=== PATIENT | female | born 1955 | race Caucasian/White ===

== ENCOUNTER 2017-07-21 10:52 | Emergency (ER) | payer MEDICARE, MEDICAID ==
[~2017-07-21] VITALS: Ht 170.2 cm; Wt 204.6 kg
[~2017-07-21 10:52] MED LIST: ALPR-624 PO; BECL7.3A INH; CARI350T PO; CITA20TA11 PO; CYAN-19 PO; DIT5T PO; DULO-31 PO; GABA600T PO; METH-603 PO; MIRT30TA8 PO; MONT10TA24 PO; OMEP20TA5 PO; OXYC-658 PO; PRAM0.253 PO; PYRI25TA3 PO; SUMA50TA PO; TIOT18CA7 IH; [UNRECOGNIZED DRUG - CODE] PO
[2017-07-21] MEDS ORDERED: normal saline 1000ML IV soln IVB ONE (11:35)
[2017-07-21] MEDS ORDERED: oxyCODONE/APAP 5-325mg tablet PO ONE (11:55)
[2017-07-21 11:57] LABS: BASOPHILS % (AUTO) 0.6 % (0-1); EOSINOPHILS # (AUTO) 0.1 X10'3 (0-0.9); EOSINOPHILS % (AUTO) 2.1 % (0-6); HEMATOCRIT 32.1 % (35.0-45.0); HEMOGLOBIN 10.8 g/dl (12.0-16.0); LYMPHOCYTES # (AUTO) 1.1 X10'3 (1.1-4.8); MEAN CORPUSCULAR HEMOGLOBIN 31.9 PG (27.0-31.0); MEAN CORPUSCULAR HGB CONC 33.7 % (33.0-36.5); MEAN CORPUSCULAR VOLUME 94.5 FL (78-98); MONOCYTES # (AUTO) 0.4 X10'3 (0-0.9); NEUTROPHILS # (AUTO) 3.1 X10'3 (1.8-7.7); NEUTROPHILS % (AUTO) 65.3 % (42-75); PLATELET COUNT 206 X10'3 (140-440); RED CELL DISTRIBUTION WIDTH 15.8 % (11.5-14.5); WHITE BLOOD COUNT 4.8 X10'3 (4.5-11.0)
[2017-07-21 12:12] LABS: ALANINE AMINOTRANSFERASE 15 U/L (12-78); ALBUMIN 3.2 G/DL (3.4-5.0); ALKALINE PHOSPHATASE 78 IU/L (46-116); ANION GAP 6 (8-16); ASPARTATE AMINO TRANSFERASE 12 U/L (10-37); BILIRUBIN,TOTAL 0.7 MG/DL (0.1-1.0); BLOOD UREA NITROGEN 30 MG/DL (7-18); CALCIUM 9.4 MG/DL (8.5-10.1); CHLORIDE 101 MMOL/L (99-107); CREATININE 1.11 MG/DL (0.40-0.90); GLUCOSE 108 MG/DL (70-104); POTASSIUM 4.3 MMOL/L (3.5-5.1); SODIUM 137 MMOL/L (135-145); TOTAL CARBON DIOXIDE 30.4 MMOL/L (24-32); TOTAL PROTEIN 6.4 G/DL (6.4-8.2); eGFR 50 ML/MIN
[2017-07-21 13:08] LABS: CLARITY,URINE CLEAR (Clear); COLOR,URINE YELLOW (Yellow); GLUCOSE, URINE NEGATIVE (Neg); KETONES,URINE NEGATIVE (Neg); LEUKOCYTE ESTERASE ,URINE NEGATIVE (Neg); NITRITES, URINE NEGATIVE (Neg); OCCULT BLOOD,URINE TRACE-INTACT (Neg); PROTEIN,URINE 100 mg/dl (Neg); UROBILINOGEN,URINE 0.2 E.U/dL (0.2-1.0)
[2017-07-21 13:10] LABS: UA COLLECTION TYPE STRAIGHT CATH
[2017-07-21 13:13] LABS: BACTERIA,URINE FEW /HPF (Neg); SQUAMOUS EPITHELIAL CELL,UR FEW /LPF (FEW); WBC,URINE 0-4 /HPF (0-4)
[2017-07-21] MEDS ORDERED: ACYC-202 PO (14:02)
[2017-07-21 18:36] VITALS: BP 148/88
== END 2017-07-21 18:39 | disposition home or self-care (01) ==
LOC: ER 10:53
DX: G62.9 Polyneuropathy, unspecified (principal); B02.9 Zoster without complications; J44.9 Chronic obstructive pulmonary disease, unspecified; I12.9 Hypertensive chronic kidney disease with stage 1 through stage 4 chronic kidney disease, or unspecified chronic kidney disease; N18.9 Chronic kidney disease, unspecified; G89.29 Other chronic pain; Z98.890 Other specified postprocedural states; Z79.899 Other long term (current) drug therapy; Z88.0 Allergy status to penicillin; Z88.8 Allergy status to other drugs, medicaments and biological substances
CPT/HCPCS: 36415; 71045; 80053; 81001; 83880; 84145; 84484; 85025; 99285

== ENCOUNTER 2017-07-31 23:16 | Observation (INO) | payer MEDICARE, MEDICAID ==
[~2017-07-31] VITALS: Ht 170.2 cm; Wt 204.6 kg
[~2017-07-31 23:16] MED LIST changes: +ACYC-202 PO; +CITA-278 PO; -CITA20TA11 PO
[2017-07-31] MEDS ORDERED: normal saline 1000ML IV soln IVB ONE (23:35)
[2017-07-31 23:58] LABS: BASOPHILS % (AUTO) 0.3 % (0-1); EOSINOPHILS # (AUTO) 0.2 X10'3 (0-0.9); EOSINOPHILS % (AUTO) 2.7 % (0-6); HEMATOCRIT 33.5 % (35.0-45.0); HEMOGLOBIN 11.4 g/dl (12.0-16.0); LYMPHOCYTES % (AUTO) 15.6 % (21-51); MEAN CORPUSCULAR HEMOGLOBIN 32.5 PG (27.0-31.0); MEAN CORPUSCULAR HGB CONC 33.9 % (33.0-36.5); MEAN CORPUSCULAR VOLUME 95.8 FL (78-98); MEAN PLATELET VOLUME 8.5 FL (7.4-10.4); MONOCYTES # (AUTO) 0.3 X10'3 (0-0.9); MONOCYTES % (AUTO) 5.5 % (2-12); NEUTROPHILS # (AUTO) 4.6 X10'3 (1.8-7.7); NEUTROPHILS % (AUTO) 75.9 % (42-75); PLATELET COUNT 203 X10'3 (140-440); RED CELL DISTRIBUTION WIDTH 14.5 % (11.5-14.5); WHITE BLOOD COUNT 6.1 X10'3 (4.5-11.0)
[2017-08-01 00:15] LABS: ALANINE AMINOTRANSFERASE 20 U/L (12-78); ALBUMIN 3.5 G/DL (3.4-5.0); ALKALINE PHOSPHATASE 72 IU/L (46-116); ANION GAP 8 (8-16); ASPARTATE AMINO TRANSFERASE 27 U/L (10-37); BILIRUBIN,TOTAL 0.6 MG/DL (0.1-1.0); BLOOD UREA NITROGEN 54 MG/DL (7-18); BUN/CREATININE RATIO 29.5 (6.6-38.0); CALCIUM 9.8 MG/DL (8.5-10.1); CHLORIDE 99 MMOL/L (99-107); CREATININE 1.83 MG/DL (0.40-0.90); GLUCOSE 107 MG/DL (70-104); POTASSIUM 4.3 MMOL/L (3.5-5.1); SODIUM 135 MMOL/L (135-145); TOTAL PROTEIN 7.1 G/DL (6.4-8.2); eGFR 28 ML/MIN
[2017-08-01 00:30] LABS: CKMB RELATIVE INDEX 1.2 RATIO (0-2.5); CREATINE KINASE 475 U/L (26-192); MAGNESIUM 2.1 MG/DL (1.5-2.4)
[2017-08-01 02:13] LABS: CLARITY,URINE CLEAR (Clear); COLOR,URINE YELLOW (Yellow); GLUCOSE, URINE NEGATIVE (Neg); KETONES,URINE NEGATIVE (Neg); LEUKOCYTE ESTERASE ,URINE NEGATIVE (Neg); NITRITES, URINE NEGATIVE (Neg); OCCULT BLOOD,URINE TRACE-LYSED (Neg); PH,URINE 5.5 (4.8-8.0); PROTEIN,URINE TRACE mg/dl (Neg); UA COLLECTION TYPE FOLEY CATH; UROBILINOGEN,URINE 0.2 E.U/dL (0.2-1.0)
[2017-08-01 02:40] LABS: BACTERIA,URINE NONE SEEN /HPF (Neg); MUCUS STRANDS MODERATE /LPF (Neg); RBC,URINE 0-2 /HPF (0-2); SQUAMOUS EPITHELIAL CELL,UR FEW /LPF (FEW); WBC,URINE 0-4 /HPF (0-4)
[2017-08-01 02:42] LABS: HYALINE CASTS 0-3 /LPF (NEGATIVE)
[2017-08-01] MEDS ORDERED: normal saline 1000ML IV soln IVB ONE (03:20)
[2017-08-01 06:31] LABS: ALBUMIN 3.1 G/DL (3.4-5.0); ANION GAP 6 (8-16); BLOOD UREA NITROGEN 50 MG/DL (7-18); BUN/CREATININE RATIO 32.9 (6.6-38.0); CALCIUM 9.6 MG/DL (8.5-10.1); CHLORIDE 103 MMOL/L (99-107); CREATININE 1.52 MG/DL (0.40-0.90); GLUCOSE 100 MG/DL (70-104); POTASSIUM 4.1 MMOL/L (3.5-5.1); SODIUM 137 MMOL/L (135-145); eGFR 35 ML/MIN
[2017-08-01] MEDS ORDERED: acetaminophen 325mg tablet PO PRN ×2 (08:35)
[2017-08-01] MEDS ORDERED: ondansetron/PF 4mg/2ml inj IV PRN (08:35)
[2017-08-01] MEDS ORDERED: mag hydrox/Alum hydrox/simeth 30ml oral suspension PO PRN (08:35)
[2017-08-01] MEDS ORDERED: magnesium hydroxide 30ml (MOM) UD suspension PO PRN (08:35)
[2017-08-01] MEDS ORDERED: TRAZ150T78 PO (12:28)
[2017-08-01] MEDS ORDERED: ALPR1TAB7 PO (12:28)
[2017-08-01] MEDS ORDERED: SPIR25TA5 PO (12:28)
[2017-08-01] MEDS ORDERED: METO10TA8 PO (12:28)
[2017-08-01] MEDS ORDERED: [UNRECOGNIZED DRUG - CODE] PO (12:28)
[2017-08-01] MEDS ORDERED: ROPI1TAB4 PO (12:28)
[2017-08-01] MEDS ORDERED: CHOL400C8 PO (12:28)
[2017-08-01] MEDS ORDERED: PANT40TA4 PO (12:28)
[2017-08-01] MEDS ORDERED: FURO40TA4 PO (12:28)
[2017-08-01] MEDS ORDERED: DULO30CA51 PO (12:28)
[2017-08-01] MEDS ORDERED: OXYC5TAB2 PO (12:28)
[2017-08-01] MEDS ORDERED: LEVO200T PO (12:28)
[2017-08-01] MEDS ORDERED: CHOL500049 PO (12:28)
[2017-08-01] MEDS ORDERED: OXYC20TA40 PO (12:28)
[2017-08-01 14:20] VITALS: BP 128/86
[2017-08-01] MEDS ORDERED: SUMAtriptan 25 MG tablet PO PRN (16:00)
[2017-08-01] MEDS: vitamin D (cholecalciferol) 1,000 unit tablet PO SCH (16:45)
[2017-08-01] MEDS: heparin, porcine 5000 units/ml vial SQ SCH ×2 (16:46→23:45)
[2017-08-01] MEDS: methadone 10mg tablet PO SCH ×2 (17:40→21:40)
[2017-08-01] MEDS: ipratropium 0.5 MG/2.5ML nebule IH SCH ×2 (17:57→20:27)
[2017-08-01 18:00] VITALS: BP 158/86
[2017-08-01] MEDS ORDERED: gabapentin 400mg capsule PO SCH (20:00)
[2017-08-01] MEDS: mirtazapine 15mg tablet PO SCH (20:13)
[2017-08-01] MEDS: pramipexole 0.25mg tablet PO SCH (20:13)
[2017-08-01] MEDS: furosemide 40mg tablet PO SCH (20:14)
[2017-08-01] MEDS: spironolactone 25 MG tablet PO SCH (20:14)
[2017-08-01] MEDS: montelukast 10mg tablet PO SCH (20:14)
[2017-08-01] MEDS: ROPINIRole 1mg tablet PO SCH (20:14)
[2017-08-01] MEDS: oxybutynin 5mg tablet PO SCH (20:15)
[2017-08-01] MEDS: ALPRAZolam 0.5mg tablet PO SCH (20:15)
[2017-08-01] MEDS: BUDESONIDE 0.25 MG/2 ML AMPUL.NEB IH SCH (20:28)
[2017-08-01] MEDS: gabapentin 300mg capsule PO SCH (20:40)
[2017-08-01] MEDS ORDERED: traZODone 150mg tablet PO SCH (21:00)
[2017-08-02] VITALS: BP 130/70
[2017-08-02] MEDS: ipratropium 0.5 MG/2.5ML nebule IH SCH ×4 (02:17→20:48)
[2017-08-02] MEDS: methadone 10mg tablet PO SCH ×5 (05:39→22:00)
[2017-08-02 05:42] LABS: RED BLOOD COUNT 3.2 X10'6 (4.20-5.60); RETICULOCYTE % (AUTO) 1.1 % (0.5-1.5)
[2017-08-02 05:44] LABS: BASOPHILS % (AUTO) 0.8 % (0-1); EOSINOPHILS # (AUTO) 0.2 X10'3 (0-0.9); EOSINOPHILS % (AUTO) 3.4 % (0-6); HEMATOCRIT 30.7 % (35.0-45.0); HEMOGLOBIN 10.3 g/dl (12.0-16.0); LYMPHOCYTES # (AUTO) 1.4 X10'3 (1.1-4.8); LYMPHOCYTES % (AUTO) 28.1 % (21-51); MEAN CORPUSCULAR HEMOGLOBIN 32.3 PG (27.0-31.0); MEAN CORPUSCULAR HGB CONC 33.5 % (33.0-36.5); MEAN CORPUSCULAR VOLUME 96.3 FL (78-98); MEAN PLATELET VOLUME 8.7 FL (7.4-10.4); MONOCYTES # (AUTO) 0.4 X10'3 (0-0.9); MONOCYTES % (AUTO) 8.4 % (2-12); NEUTROPHILS # (AUTO) 2.9 X10'3 (1.8-7.7); NEUTROPHILS % (AUTO) 59.3 % (42-75); PLATELET COUNT 184 X10'3 (140-440); RED BLOOD COUNT 3.19 X10'6 (4.20-5.60); RED CELL DISTRIBUTION WIDTH 14.2 % (11.5-14.5); WHITE BLOOD COUNT 4.9 X10'3 (4.5-11.0)
[2017-08-02 06:16] LABS: ANION GAP 3 (8-16); BLOOD UREA NITROGEN 38 MG/DL (7-18); BUN/CREATININE RATIO 30.9 (6.6-38.0); CALCIUM 9.5 MG/DL (8.5-10.1); CHLORIDE 103 MMOL/L (99-107); CREATININE 1.23 MG/DL (0.40-0.90); FERRITIN 89 NG/ML (8-252); GLUCOSE 100 MG/DL (70-104); PHOSPHORUS 3.3 MG/DL (2.3-4.5); SODIUM 138 MMOL/L (135-145); TOTAL CARBON DIOXIDE 31.6 MMOL/L (24-32); eGFR 44 ML/MIN
[2017-08-02 06:17] LABS: % IRON SATURATION 17 % (11-46); IRON 41 UG/DL (49-151); TOTAL IRON BINDING CAPACITY 247 UG/DL (259-388)
[2017-08-02 07:25] VITALS: BP 133/67
[2017-08-02] MEDS: pantoprazole 40mg Tablet.DR PO SCH ×2 (08:00→08:58)
[2017-08-02] MEDS: BUDESONIDE 0.25 MG/2 ML AMPUL.NEB IH SCH ×2 (08:25→20:49)
[2017-08-02] MEDS: spironolactone 25 MG tablet PO SCH ×2 (08:48→20:00)
[2017-08-02] MEDS: citalopram 20mg tablet PO SCH (08:48)
[2017-08-02] MEDS: duloxetine 30mg CAPSULE.DR PO SCH (08:49)
[2017-08-02] MEDS: furosemide 40mg tablet PO SCH ×2 (08:50→20:22)
[2017-08-02] MEDS: oxybutynin 5mg tablet PO SCH ×2 (08:50→20:22)
[2017-08-02] MEDS: gabapentin 300mg capsule PO SCH ×2 (08:51→20:23)
[2017-08-02] MEDS: levoTHYROXINE 100mcg tablet PO SCH (08:59)
[2017-08-02] MEDS: cyanocobalamin 500mcg tablet PO SCH (08:59)
[2017-08-02] MEDS: vitamin D (cholecalciferol) 1,000 unit tablet PO SCH (09:00)
[2017-08-02] MEDS: ALPRAZolam 0.5mg tablet PO SCH ×2 (09:01→20:22)
[2017-08-02] MEDS: heparin, porcine 5000 units/ml vial SQ SCH ×3 (09:04→23:51)
[2017-08-02 12:10] VITALS: BP 113/68
[2017-08-02] MEDS: nystatin 15 GM powder TP SCH ×2 (13:53→20:24)
[2017-08-02 20:00] VITALS: BP 116/71
[2017-08-02] MEDS: mirtazapine 15mg tablet PO SCH (20:22)
[2017-08-02] MEDS: traZODone 50mg tablet PO SCH (20:22)
[2017-08-02] MEDS: ROPINIRole 1mg tablet PO SCH (20:22)
[2017-08-02] MEDS: pramipexole 0.25mg tablet PO SCH (20:22)
[2017-08-02] MEDS: montelukast 10mg tablet PO SCH (20:22)
[2017-08-03] VITALS: BP 113/56
[2017-08-03] MEDS: ipratropium 0.5 MG/2.5ML nebule IH SCH ×4 (03:19→20:49)
[2017-08-03] MEDS: methadone 10mg tablet PO SCH ×5 (05:57→21:28)
[2017-08-03 06:26] LABS: BASOPHILS % (AUTO) 0.8 % (0-1); EOSINOPHILS # (AUTO) 0.2 X10'3 (0-0.9); EOSINOPHILS % (AUTO) 3.9 % (0-6); HEMATOCRIT 33.9 % (35.0-45.0); HEMOGLOBIN 11.3 g/dl (12.0-16.0); LYMPHOCYTES # (AUTO) 1.4 X10'3 (1.1-4.8); LYMPHOCYTES % (AUTO) 34.8 % (21-51); MEAN CORPUSCULAR HEMOGLOBIN 32.6 PG (27.0-31.0); MEAN CORPUSCULAR HGB CONC 33.4 % (33.0-36.5); MEAN CORPUSCULAR VOLUME 97.6 FL (78-98); MEAN PLATELET VOLUME 8.9 FL (7.4-10.4); MONOCYTES # (AUTO) 0.3 X10'3 (0-0.9); MONOCYTES % (AUTO) 8.6 % (2-12); NEUTROPHILS # (AUTO) 2.1 X10'3 (1.8-7.7); NEUTROPHILS % (AUTO) 51.9 % (42-75); PLATELET COUNT 173 X10'3 (140-440); RED BLOOD COUNT 3.48 X10'6 (4.20-5.60); RED CELL DISTRIBUTION WIDTH 15.3 % (11.5-14.5)
[2017-08-03 06:33] LABS: ALBUMIN 2.8 G/DL (3.4-5.0); ANION GAP 6 (8-16); BLOOD UREA NITROGEN 40 MG/DL (7-18); BUN/CREATININE RATIO 29.6 (6.6-38.0); CALCIUM 9.7 MG/DL (8.5-10.1); CHLORIDE 103 MMOL/L (99-107); CREATININE 1.35 MG/DL (0.40-0.90); GLUCOSE 97 MG/DL (70-104); POTASSIUM 4.4 MMOL/L (3.5-5.1); SODIUM 141 MMOL/L (135-145); TOTAL CARBON DIOXIDE 31.9 MMOL/L (24-32); eGFR 40 ML/MIN
[2017-08-03 07:23] VITALS: BP 142/43
[2017-08-03] MEDS: BUDESONIDE 0.25 MG/2 ML AMPUL.NEB IH SCH ×2 (07:23→20:50)
[2017-08-03] MEDS: pantoprazole 40mg Tablet.DR PO SCH ×2 (08:00→08:21)
[2017-08-03] MEDS: levoTHYROXINE 100mcg tablet PO SCH (08:21)
[2017-08-03] MEDS: furosemide 40mg tablet PO SCH ×2 (08:21→21:21)
[2017-08-03] MEDS: spironolactone 25 MG tablet PO SCH ×2 (08:21→21:20)
[2017-08-03] MEDS: cyanocobalamin 500mcg tablet PO SCH (08:21)
[2017-08-03] MEDS: gabapentin 300mg capsule PO SCH ×2 (08:21→21:21)
[2017-08-03] MEDS: ALPRAZolam 0.5mg tablet PO SCH ×2 (08:21→21:21)
[2017-08-03] MEDS: oxybutynin 5mg tablet PO SCH ×2 (08:21→21:21)
[2017-08-03] MEDS: citalopram 20mg tablet PO SCH (08:21)
[2017-08-03] MEDS: duloxetine 30mg CAPSULE.DR PO SCH (08:21)
[2017-08-03] MEDS: nystatin 15 GM powder TP SCH ×3 (08:22→21:22)
[2017-08-03] MEDS: vitamin D (cholecalciferol) 1,000 unit tablet PO SCH (08:22)
[2017-08-03] MEDS: heparin, porcine 5000 units/ml vial SQ SCH ×2 (08:22→15:25)
[2017-08-03] MEDS ORDERED: MONT10TA21 PO (09:55)
[2017-08-03] MEDS ORDERED: FLUC100T PO (10:01)
[2017-08-03] MEDS ORDERED: VITAMIN B12 IM (10:05)
[2017-08-03] MEDS ORDERED: PHEN37.54 (10:13)
[2017-08-03] MEDS ORDERED: ALPR1TAB7 (10:13)
[2017-08-03 11:10] VITALS: BP 118/82
[2017-08-03 19:20] VITALS: BP 132/63
[2017-08-03] MEDS: traZODone 50mg tablet PO SCH (21:22)
[2017-08-03] MEDS: pramipexole 0.25mg tablet PO SCH (21:22)
[2017-08-03] MEDS: ROPINIRole 1mg tablet PO SCH (21:22)
[2017-08-03] MEDS: mirtazapine 15mg tablet PO SCH (21:22)
[2017-08-03] MEDS: montelukast 10mg tablet PO SCH (21:22)
[2017-08-04] VITALS: BP 122/64
[2017-08-04] MEDS: heparin, porcine 5000 units/ml vial SQ SCH ×2 (00:19→08:40)
[2017-08-04] MEDS: ipratropium 0.5 MG/2.5ML nebule IH SCH ×2 (02:54→07:46)
[2017-08-04] MEDS: methadone 10mg tablet PO SCH ×3 (05:38→13:04)
[2017-08-04 05:58] LABS: BASOPHILS % (AUTO) 0.8 % (0-1); EOSINOPHILS # (AUTO) 0.3 X10'3 (0-0.9); EOSINOPHILS % (AUTO) 4.7 % (0-6); HEMATOCRIT 33.8 % (35.0-45.0); HEMOGLOBIN 11.1 g/dl (12.0-16.0); LYMPHOCYTES % (AUTO) 35.8 % (21-51); MEAN CORPUSCULAR HEMOGLOBIN 32.3 PG (27.0-31.0); MEAN CORPUSCULAR VOLUME 97.8 FL (78-98); MEAN PLATELET VOLUME 8.7 FL (7.4-10.4); MONOCYTES # (AUTO) 0.5 X10'3 (0-0.9); MONOCYTES % (AUTO) 9.2 % (2-12); NEUTROPHILS # (AUTO) 2.8 X10'3 (1.8-7.7); NEUTROPHILS % (AUTO) 49.5 % (42-75); PLATELET COUNT 213 X10'3 (140-440); RED BLOOD COUNT 3.45 X10'6 (4.20-5.60); RED CELL DISTRIBUTION WIDTH 14.4 % (11.5-14.5); WHITE BLOOD COUNT 5.7 X10'3 (4.5-11.0)
[2017-08-04 06:02] LABS: ALBUMIN 3.1 G/DL (3.4-5.0); ANION GAP 8 (8-16); BLOOD UREA NITROGEN 42 MG/DL (7-18); BUN/CREATININE RATIO 26.3 (6.6-38.0); CALCIUM 9.4 MG/DL (8.5-10.1); CHLORIDE 96 MMOL/L (99-107); GLUCOSE 97 MG/DL (70-104); POTASSIUM 4.6 MMOL/L (3.5-5.1); SODIUM 135 MMOL/L (135-145); TOTAL CARBON DIOXIDE 31.3 MMOL/L (24-32); eGFR 33 ML/MIN
[2017-08-04 06:59] VITALS: BP 128/46
[2017-08-04] MEDS: BUDESONIDE 0.25 MG/2 ML AMPUL.NEB IH SCH (07:46)
[2017-08-04] MEDS: ALPRAZolam 0.5mg tablet PO SCH (08:00)
[2017-08-04] MEDS: pantoprazole 40mg Tablet.DR PO SCH ×2 (08:00→08:39)
[2017-08-04] MEDS: citalopram 20mg tablet PO SCH (08:38)
[2017-08-04] MEDS: duloxetine 30mg CAPSULE.DR PO SCH (08:39)
[2017-08-04] MEDS: gabapentin 300mg capsule PO SCH (08:39)
[2017-08-04] MEDS: cyanocobalamin 500mcg tablet PO SCH (08:39)
[2017-08-04] MEDS: spironolactone 25 MG tablet PO SCH (08:39)
[2017-08-04] MEDS: oxybutynin 5mg tablet PO SCH (08:39)
[2017-08-04] MEDS: furosemide 40mg tablet PO SCH (08:39)
[2017-08-04] MEDS: levoTHYROXINE 100mcg tablet PO SCH (08:39)
[2017-08-04] MEDS: vitamin D (cholecalciferol) 1,000 unit tablet PO SCH (08:40)
[2017-08-04] MEDS: nystatin 15 GM powder TP SCH ×2 (08:40→13:04)
[2017-08-04 11:08] VITALS: BP 124/45
[2017-08-04] MEDS ORDERED: ALPRAZolam 0.5mg tablet PO SCH (21:00)
== END 2017-08-04 15:35 ==
LOC: ER 23:17 → ED HOLD 08-01 08:35 → SUR 3N 08-01 13:40
PROVIDERS: ADMIT Internal Medicine; ATTEND Internal Medicine
DX: M54.5 Low back pain (principal); F41.9 Anxiety disorder, unspecified; G62.9 Polyneuropathy, unspecified; J44.9 Chronic obstructive pulmonary disease, unspecified; G89.29 Other chronic pain; R60.9 Edema, unspecified; E03.9 Hypothyroidism, unspecified; F32.9 Major depressive disorder, single episode, unspecified; E66.01 Morbid (severe) obesity due to excess calories; G25.81 Restless legs syndrome; I27.20 Pulmonary hypertension, unspecified; I89.0 Lymphedema, not elsewhere classified; N18.9 Chronic kidney disease, unspecified; D64.9 Anemia, unspecified; Z79.1 Long term (current) use of non-steroidal anti-inflammatories (NSAID); Z79.51 Long term (current) use of inhaled steroids; Z79.899 Other long term (current) drug therapy; Z86.73 Personal history of transient ischemic attack (TIA), and cerebral infarction without residual deficits
CPT/HCPCS: 36415; 71045; 72100; 80048; 80053; 81001; 82550; 82553; 82607; 82728; 82746; 83540; 83550; 83735; 83880; 84100; 84439; 84443; 84484; 85025; 85045; 87070; 93005; 94640; 94760; 96360; 96361; 96372; 97110; 97116; 97530; 99285; A4315; A6212; A6213; G0378; J1644; J3420

== ENCOUNTER 2018-02-02 12:59 | Inpatient (IN) | payer MEDICARE, MEDICAID ==
[~2018-02-02] VITALS: Ht 170.2 cm; Wt 219.9 kg
[~2018-02-02 12:59] MED LIST changes: -ACYC-202 PO; -ALPR-624 PO; +ALPR1TAB7; +ALPR1TAB7 PO; -CARI350T PO; +CHOL500049 PO; -CYAN-19 PO; -DIT5T PO; -DULO-31 PO; +DULO30CA51 PO; +FLUC100T PO; +FURO40TA4 PO; +LEVO200T PO; +METO10TA8 PO; +MONT10TA21 PO; -OXYC-658 PO; +OXYC20TA40 PO; +PANT40TA4 PO; +PHEN37.54; +ROPI1TAB4 PO; +SPIR25TA5 PO; +TRAZ150T78 PO; +VITAMIN B12 IM; +[UNRECOGNIZED DRUG - CODE] PO
[2018-02-02] MEDS ORDERED: ondansetron/PF 4mg/2ml inj IV ONE (13:45)
[2018-02-02] MEDS ORDERED: normal saline 1000ML IV soln IVB ONE (13:45)
[2018-02-02] MEDS: morphine 4 MG/ML inj SYRINge IV PRN ×2 (13:58→14:20)
[2018-02-02] MEDS ORDERED: sodium bicarbonate (8.4%) 1 mEq/ml syringe ONE (14:00)
[2018-02-02] MEDS ORDERED: epiNEPHrine 0.1mg/ml 10ml syringe ONE (14:00)
[2018-02-02] MEDS ORDERED: etomidate 2mg/ml inj. ONE (14:00)
[2018-02-02 14:36] LABS: BASOPHILS % (AUTO) 0 % (0-1); EOSINOPHILS % (AUTO) 0.2 % (0-6); HEMATOCRIT 22.6 % (35.0-45.0); HEMOGLOBIN 7.1 g/dl (12.0-16.0); LYMPHOCYTES # (AUTO) 0.4 X10'3 (1.1-4.8); LYMPHOCYTES % (AUTO) 4.9 % (21-51); MEAN CORPUSCULAR HEMOGLOBIN 28.3 PG (27.0-31.0); MEAN CORPUSCULAR HGB CONC 31.5 % (33.0-36.5); MEAN CORPUSCULAR VOLUME 89.9 FL (78-98); MEAN PLATELET VOLUME 8.1 FL (7.4-10.4); MONOCYTES # (AUTO) 0.1 X10'3 (0-0.9); MONOCYTES % (AUTO) 1.4 % (2-12); NEUTROPHILS # (AUTO) 8.4 X10'3 (1.8-7.7); NEUTROPHILS % (AUTO) 93.5 % (42-75); PLATELET COUNT 424 X10'3 (140-440); RED BLOOD COUNT 2.51 X10'6 (4.20-5.60); RED CELL DISTRIBUTION WIDTH 18.3 % (11.5-14.5)
[2018-02-02] MEDS ORDERED: HYDROmorphone 1 mg/ml syringe IV ONE ×2 (14:45→15:15)
[2018-02-02 14:50] LABS: ALANINE AMINOTRANSFERASE 18 U/L (12-78); ALBUMIN 2.9 G/DL (3.4-5.0); ALBUMIN/GLOBULIN RATIO 0.7 (1.1-1.5); ALKALINE PHOSPHATASE 97 IU/L (46-116); ANION GAP 10 (8-16); ASPARTATE AMINO TRANSFERASE 16 U/L (10-37); BILIRUBIN,TOTAL 0.7 MG/DL (0.1-1.0); BLOOD UREA NITROGEN 83 MG/DL (7-18); BUN/CREATININE RATIO 42.3 (6.6-38.0); CALCIUM 9.7 MG/DL (8.5-10.1); CHLORIDE 103 MMOL/L (99-107); CREATININE 1.96 MG/DL (0.40-0.90); GLUCOSE 137 MG/DL (70-104); LIPASE 179 U/L (73-393); POTASSIUM 4.3 MMOL/L (3.5-5.1); SODIUM 140 MMOL/L (135-145); TOTAL CARBON DIOXIDE 27.1 MMOL/L (24-32); TOTAL PROTEIN 7.1 G/DL (6.4-8.2); eGFR 26 ML/MIN
[2018-02-02 14:52] LABS: ANISOCYTOSIS 2+; HYPOCHROMASIA 1+; PLATELET ESTIMATE NORMAL; TOTAL CELLS COUNTED 100
[2018-02-02 14:53] LABS: POLYCHROMASIA 1+
[2018-02-02] MEDS ORDERED: normal saline 1000ML IV soln IV ONE (15:15)
[2018-02-02] MEDS ORDERED: metroNIDAZOLE-Flagyl 500mg/NS 100 ML IV STA (16:01)
[2018-02-02] MEDS ORDERED: ciprofloxacin lact 400MG/200ML 200 ML IV STA (16:01)
[2018-02-02] MEDS ORDERED: ondansetron/PF 4mg/2ml inj IV PRN (16:15)
[2018-02-02] MEDS ORDERED: magnesium hydroxide 30ml (MOM) UD suspension PO PRN (16:15)
[2018-02-02] MEDS ORDERED: HYDROcodone/acetaminophen 10/325mg tab PO PRN (16:15)
[2018-02-02] MEDS ORDERED: acetaminophen 325mg tablet PO PRN (16:15)
[2018-02-02] MEDS ORDERED: HYDROcodone/acetaminophen 5mg/325mg tablet PO PRN (16:15)
[2018-02-02] MEDS ORDERED: mag hydrox/Alum hydrox/simeth 30ml oral suspension PO PRN (16:15)
[2018-02-02] MEDS: HYDROmorphone 1 mg/ml syringe IV PRN ×2 (16:55→21:16)
[2018-02-02] MEDS: normal saline 1000ml 1,000 ML IV SCH (17:46)
[2018-02-02] MEDS ORDERED: TIOT18CA3 INH (18:27)
[2018-02-02] MEDS ORDERED: HYDR-3686 PO (18:27)
[2018-02-02] MEDS ORDERED: BUDE10.2 INH (18:27)
[2018-02-02] MEDS ORDERED: PREG300C PO (18:27)
[2018-02-02] MEDS ORDERED: MELO-102 PO (18:27)
[2018-02-02] MEDS ORDERED: FOLI1TAB16 PO (18:27)
[2018-02-02 20:00] VITALS: BP 132/54
[2018-02-02] MEDS ORDERED: methadone 10mg tablet PO SCH (20:11)
[2018-02-02] MEDS: methadone 10mg tablet PO SCH (20:12)
[2018-02-02] MEDS ORDERED: methadone 10mg tablet PO ONE (20:20)
[2018-02-02 23:30] VITALS: BP 127/55
[2018-02-03] VITALS (22 sets, daily range): BP systolic 86–138; BP diastolic 31–72
[2018-02-03] MEDS ORDERED: traZODone 150mg tablet PO PRN (00:10)
[2018-02-03] MEDS: methadone 10mg tablet PO SCH ×5 (05:34→21:21)
[2018-02-03 05:52] LABS: BASOPHILS % (AUTO) 0.2 % (0-1); EOSINOPHILS % (AUTO) 0 % (0-6); LYMPHOCYTES # (AUTO) 0.7 X10'3 (1.1-4.8); LYMPHOCYTES % (AUTO) 3.9 % (21-51); MEAN CORPUSCULAR HEMOGLOBIN 28.4 PG (27.0-31.0); MEAN CORPUSCULAR HGB CONC 31.4 % (33.0-36.5); MEAN CORPUSCULAR VOLUME 90.6 FL (78-98); MEAN PLATELET VOLUME 8.8 FL (7.4-10.4); MONOCYTES # (AUTO) 0.6 X10'3 (0-0.9); MONOCYTES % (AUTO) 3.4 % (2-12); NEUTROPHILS # (AUTO) 15.6 X10'3 (1.8-7.7); NEUTROPHILS % (AUTO) 92.5 % (42-75); PLATELET COUNT 390 X10'3 (140-440); RED BLOOD COUNT 2.33 X10'6 (4.20-5.60); RED CELL DISTRIBUTION WIDTH 18.3 % (11.5-14.5); WHITE BLOOD COUNT 16.9 X10'3 (4.5-11.0)
[2018-02-03 06:02] LABS: HEMATOCRIT 21.1 % (35.0-45.0); HEMOGLOBIN 6.6 g/dl (12.0-16.0)
[2018-02-03 06:10] LABS: ALANINE AMINOTRANSFERASE 16 U/L (12-78); ALBUMIN 2.4 G/DL (3.4-5.0); ALBUMIN/GLOBULIN RATIO 0.6 (1.1-1.5); ALKALINE PHOSPHATASE 86 IU/L (46-116); ANION GAP 10 (8-16); BILIRUBIN,TOTAL 0.8 MG/DL (0.1-1.0); BLOOD UREA NITROGEN 89 MG/DL (7-18); BUN/CREATININE RATIO 34.8 (6.6-38.0); CALCIUM 8.9 MG/DL (8.5-10.1); CHLORIDE 103 MMOL/L (99-107); CREATININE 2.56 MG/DL (0.40-0.90); GLUCOSE 112 MG/DL (70-104); SODIUM 138 MMOL/L (135-145); TOTAL CARBON DIOXIDE 25.4 MMOL/L (24-32); TOTAL PROTEIN 6.5 G/DL (6.4-8.2); eGFR 19 ML/MIN
[2018-02-03 06:18] LABS: ASPARTATE AMINO TRANSFERASE 31 U/L (10-37); POTASSIUM 5.7 MMOL/L (3.5-5.1)
[2018-02-03] MEDS ORDERED: enoxaparin 40mg/0.4ml syringe SUBCUT SCH (08:00)
[2018-02-03 08:36] LABS: BASOPHILS % (AUTO) 0 % (0-1); EOSINOPHILS % (AUTO) 0 % (0-6); LYMPHOCYTES # (AUTO) 0.6 X10'3 (1.1-4.8); LYMPHOCYTES % (AUTO) 3.5 % (21-51); MEAN CORPUSCULAR HEMOGLOBIN 28.2 PG (27.0-31.0); MEAN CORPUSCULAR HGB CONC 31.2 % (33.0-36.5); MEAN CORPUSCULAR VOLUME 90.3 FL (78-98); MEAN PLATELET VOLUME 8.1 FL (7.4-10.4); MONOCYTES # (AUTO) 0.3 X10'3 (0-0.9); MONOCYTES % (AUTO) 1.9 % (2-12); NEUTROPHILS # (AUTO) 17.2 X10'3 (1.8-7.7); NEUTROPHILS % (AUTO) 94.6 % (42-75); PLATELET COUNT 355 X10'3 (140-440); RED BLOOD COUNT 2.36 X10'6 (4.20-5.60); RED CELL DISTRIBUTION WIDTH 17.8 % (11.5-14.5); WHITE BLOOD COUNT 18.1 X10'3 (4.5-11.0)
[2018-02-03 08:37] LABS: ANISOCYTOSIS 2+; PLATELET ESTIMATE NORMAL; POLYCHROMASIA 2+; TOTAL CELLS COUNTED 100
[2018-02-03 08:38] LABS: TOXIC GRANULATION 1+; TOXIC VACUOLATION 2+
[2018-02-03 08:40] LABS: HEMATOCRIT 21.3 % (35.0-45.0); HEMOGLOBIN 6.7 g/dl (12.0-16.0)
[2018-02-03 08:44] LABS: ALBUMIN 2.3 G/DL (3.4-5.0); ANION GAP 14 (8-16); BLOOD UREA NITROGEN 86 MG/DL (7-18); BUN/CREATININE RATIO 30.7 (6.6-38.0); CHLORIDE 102 MMOL/L (99-107); GLUCOSE 108 MG/DL (70-104); POTASSIUM 5.1 MMOL/L (3.5-5.1); SODIUM 139 MMOL/L (135-145); TOTAL CARBON DIOXIDE 23.5 MMOL/L (24-32); eGFR 17 ML/MIN
[2018-02-03] MEDS ORDERED: diphenhydrAMINE 25mg capsule PO ONE (09:10)
[2018-02-03] MEDS ORDERED: pantoprazole 40 MG vial IV ONE (09:10)
[2018-02-03] MEDS ORDERED: acetaminophen 325mg tablet PO ONE (09:10)
[2018-02-03] MEDS ORDERED: sincalide inj 0 MCG in normal saline 50ml IV soln 50 ML IV ONE (09:20)
[2018-02-03] MEDS: HYDROmorphone 1 mg/ml syringe IV PRN ×3 (09:23→22:21)
[2018-02-03] MEDS: normal saline 1000ml 1,000 ML IV SCH ×3 (09:24→20:44)
[2018-02-03 10:38] LABS: OCCULT BLOOD STOOL NEGATIVE (Neg)
[2018-02-03] MEDS: pantoprazole 40MG/NS 100ML BAG 100 ML IV SCH ×3 (10:59→22:23)
[2018-02-03] MEDS ORDERED: furosemide 40mg/4ml inj IV ONE (11:10)
[2018-02-03] MEDS ORDERED: cyclobenzaprine 10mg tablet PO PRN (14:50)
[2018-02-03] MEDS ORDERED: LIDOcaine Viscous 15ml cup ONE (15:17)
[2018-02-03] MEDS ORDERED: MIDAZolam 5mg/5ml vial ONE (15:17)
[2018-02-03] MEDS ORDERED: fentaNYL/PF 50MCG/1 ML 2ML syringe ONE (15:17)
[2018-02-03 15:46] LABS: BASOPHILS % (AUTO) 0 % (0-1); EOSINOPHILS # (AUTO) 0.2 X10'3 (0-0.9); EOSINOPHILS % (AUTO) 0.9 % (0-6); HEMATOCRIT 22.5 % (35.0-45.0); HEMOGLOBIN 7.1 g/dl (12.0-16.0); LYMPHOCYTES # (AUTO) 0.8 X10'3 (1.1-4.8); LYMPHOCYTES % (AUTO) 4.1 % (21-51); MEAN CORPUSCULAR HEMOGLOBIN 28.4 PG (27.0-31.0); MEAN CORPUSCULAR HGB CONC 31.6 % (33.0-36.5); MEAN CORPUSCULAR VOLUME 89.9 FL (78-98); MEAN PLATELET VOLUME 8.4 FL (7.4-10.4); MONOCYTES # (AUTO) 0.5 X10'3 (0-0.9); MONOCYTES % (AUTO) 2.6 % (2-12); NEUTROPHILS # (AUTO) 19.1 X10'3 (1.8-7.7); NEUTROPHILS % (AUTO) 92.4 % (42-75); PLATELET COUNT 339 X10'3 (140-440); RED BLOOD COUNT 2.51 X10'6 (4.20-5.60); RED CELL DISTRIBUTION WIDTH 18.3 % (11.5-14.5); WHITE BLOOD COUNT 20.6 X10'3 (4.5-11.0)
[2018-02-03] MEDS: albuterol 2.5 MG/3 ML nebule NEB SCH ×2 (17:00→20:44)
[2018-02-03 17:36] LABS: TOTAL CELLS COUNTED 100
[2018-02-03 17:37] LABS: ANISOCYTOSIS 2+; PLATELET ESTIMATE NORMAL
[2018-02-03 17:38] LABS: POLYCHROMASIA FEW
[2018-02-03] MEDS: levoFLOXACIN-Levaquin 500mg/D5 100 ML IV SCH (17:42)
[2018-02-03] MEDS: metroNIDAZOLE-Flagyl 500mg/NS 100 ML IV SCH (18:55)
[2018-02-03] MEDS ORDERED: ALPRAZolam 0.5mg tablet PO PRN (20:00)
[2018-02-03] MEDS: ipratropium 0.5 MG/2.5ML nebule IH SCH (20:43)
[2018-02-03] MEDS: budesonide 0.5mg/2ml UD nebule IH SCH (20:44)
[2018-02-03] MEDS: gabapentin 400mg capsule PO SCH (20:48)
[2018-02-03] MEDS: diatr meglu/diatrizoate 30ml oral sol.-(3 dose) bottle PO SCH ×2 (20:48→21:00)
[2018-02-03] MEDS: traZODone 150mg tablet PO SCH (20:49)
[2018-02-03] MEDS: ROPINIRole 1mg tablet PO SCH (20:50)
[2018-02-03] MEDS: hydrOXYzine 25 MG tablet PO SCH (20:50)
[2018-02-03 21:36] LABS: GLUCOSE, URINE NEGATIVE (Neg); KETONES,URINE TRACE mg/dl (Neg); LEUKOCYTE ESTERASE ,URINE TRACE (Neg); NITRITES, URINE POSITIVE (Neg); OCCULT BLOOD,URINE MODERATE (Neg); PROTEIN,URINE 100 mg/dl (Neg); UROBILINOGEN,URINE 0.2 E.U/dL (0.2-1.0)
[2018-02-03 21:46] LABS: CLARITY,URINE TURBID (Clear); COLOR,URINE DARK YELLOW (Yellow)
[2018-02-03 21:48] LABS: UA COLLECTION TYPE FOLEY CATH
[2018-02-03 21:49] LABS: WBC,URINE 0-4 /HPF (0-4)
[2018-02-03 21:50] LABS: AMORPHOUS URATES 2+; BACTERIA,URINE 1+ /HPF (Neg); MUCUS STRANDS NONE SEEN /LPF (Neg); SQUAMOUS EPITHELIAL CELL,UR FEW /LPF (FEW)
[2018-02-04] VITALS (11 sets, daily range): BP systolic 95–148; BP diastolic 48–107
[2018-02-04] MEDS: metroNIDAZOLE-Flagyl 500mg/NS 100 ML IV SCH ×3 (01:42→17:27)
[2018-02-04 01:47] LABS: ALANINE AMINOTRANSFERASE 13 U/L (12-78); ALBUMIN 2.2 G/DL (3.4-5.0); ALBUMIN/GLOBULIN RATIO 0.5 (1.1-1.5); ALKALINE PHOSPHATASE 115 IU/L (46-116); ANION GAP 13 (8-16); ASPARTATE AMINO TRANSFERASE 19 U/L (10-37); BILIRUBIN,TOTAL 0.7 MG/DL (0.1-1.0); BLOOD UREA NITROGEN 93 MG/DL (7-18); BUN/CREATININE RATIO 26.1 (6.6-38.0); CHLORIDE 102 MMOL/L (99-107); CREATININE 3.56 MG/DL (0.40-0.90); GLUCOSE 124 MG/DL (70-104); POTASSIUM 5.6 MMOL/L (3.5-5.1); SODIUM 138 MMOL/L (135-145); TOTAL CARBON DIOXIDE 23.5 MMOL/L (24-32); TOTAL PROTEIN 6.6 G/DL (6.4-8.2); eGFR 13 ML/MIN
[2018-02-04 01:55] LABS: BASOPHILS % (AUTO) 0.3 % (0-1); EOSINOPHILS % (AUTO) 0 % (0-6); HEMATOCRIT 24.1 % (35.0-45.0); HEMOGLOBIN 7.7 g/dl (12.0-16.0); LYMPHOCYTES # (AUTO) 0.7 X10'3 (1.1-4.8); MEAN CORPUSCULAR HEMOGLOBIN 28.8 PG (27.0-31.0); MEAN CORPUSCULAR HGB CONC 31.8 % (33.0-36.5); MEAN CORPUSCULAR VOLUME 90.6 FL (78-98); MEAN PLATELET VOLUME 8.9 FL (7.4-10.4); MONOCYTES # (AUTO) 0.6 X10'3 (0-0.9); MONOCYTES % (AUTO) 3.1 % (2-12); NEUTROPHILS # (AUTO) 16.9 X10'3 (1.8-7.7); NEUTROPHILS % (AUTO) 92.6 % (42-75); PLATELET COUNT 308 X10'3 (140-440); RED BLOOD COUNT 2.66 X10'6 (4.20-5.60); RED CELL DISTRIBUTION WIDTH 18.8 % (11.5-14.5); WHITE BLOOD COUNT 18.3 X10'3 (4.5-11.0)
[2018-02-04] MEDS: ipratropium 0.5 MG/2.5ML nebule IH SCH ×2 (02:00→07:36)
[2018-02-04] MEDS: pantoprazole 40MG/NS 100ML BAG 100 ML IV SCH ×5 (04:18→20:30)
[2018-02-04] MEDS: HYDROmorphone 1 mg/ml syringe IV PRN (04:18)
[2018-02-04] MEDS: normal saline 1000ml 1,000 ML IV SCH (04:22)
[2018-02-04 05:17] LABS: TOTAL CELLS COUNTED 100
[2018-02-04 05:19] LABS: ANISOCYTOSIS 2+; PLATELET ESTIMATE NORMAL; POLYCHROMASIA FEW
[2018-02-04] MEDS: methadone 10mg tablet PO SCH ×5 (06:00→22:00)
[2018-02-04] MEDS: levoTHYROXINE 100mcg tablet PO SCH (07:00)
[2018-02-04] MEDS: diatr meglu/diatrizoate 30ml oral sol.-(3 dose) bottle PO SCH ×3 (07:00→20:26)
[2018-02-04] MEDS: albuterol 2.5 MG/3 ML nebule NEB SCH (07:36)
[2018-02-04] MEDS: budesonide 0.5mg/2ml UD nebule IH SCH ×2 (07:36→19:11)
[2018-02-04] MEDS ORDERED: furosemide 20 MG/2 ML vial IV STA (07:57)
[2018-02-04] MEDS: folic acid 1mg tablet PO SCH (08:00)
[2018-02-04] MEDS: hydrOXYzine 25 MG tablet PO SCH ×3 (08:00→20:26)
[2018-02-04] MEDS: gabapentin 400mg capsule PO SCH ×2 (08:00→13:54)
[2018-02-04] MEDS: levoFLOXACIN-Levaquin 500mg/D5 100 ML IV SCH (08:10)
[2018-02-04 08:35] LABS: ABG BASE EXCESS -9.4 mmol/L (-2.0-3.0); ABG HCO3 21.9 mmol/L (22.0-26.0); ABG OXYGEN SATURATION 89.6 % (95-98); ABG PCO2 (T) 89.1 mmHg (32.0-45.0); ABG PH (T) 7.009 (7.350-7.450); ABG PO2 (T) 67.4 mmHg (83-108); ALLEN'S TEST Positive; FCOHb 1.7 % (0.5-1.5); FLOW 3 L/min; FMetHb 0.3 % (0.3-1.12); FO2Hb 87.8 % (94-100); TOTAL HEMOGLOBIN 8.7 G/dl (12.0-16.0)
[2018-02-04 10:01] LABS: ABG BASE EXCESS -13.6 mmol/L (-2.0-3.0); ABG HCO3 15.8 mmol/L (22.0-26.0); ABG OXYGEN SATURATION 98.9 % (95-98); ABG PCO2 (T) 54.7 mmHg (32.0-45.0); ABG PH (T) 7.078 (7.350-7.450); ABG PO2 (T) 167.6 mmHg (83-108); FCOHb 1.3 % (0.5-1.5); FMetHb 0.3 % (0.3-1.12); FO2Hb 97.3 % (94-100); MINUTE VOLUME 10 L/min; PEEP 0 cm H2O; RESPIRATORY RATE 16 b/min; RESPIRATORY RATE (OBSERVED) 15 b/min; TIDAL VOLUME 550 mL; TOTAL HEMOGLOBIN 8.5 G/dl (12.0-16.0)
[2018-02-04 10:20] LABS: BASOPHILS % (AUTO) 0.2 % (0-1); EOSINOPHILS % (AUTO) 0.1 % (0-6); HEMATOCRIT 24.5 % (35.0-45.0); HEMOGLOBIN 7.6 g/dl (12.0-16.0); LYMPHOCYTES # (AUTO) 0.9 X10'3 (1.1-4.8); LYMPHOCYTES % (AUTO) 3.7 % (21-51); MEAN CORPUSCULAR HEMOGLOBIN 28.2 PG (27.0-31.0); MEAN CORPUSCULAR HGB CONC 30.9 % (33.0-36.5); MEAN CORPUSCULAR VOLUME 91.3 FL (78-98); MEAN PLATELET VOLUME 8.8 FL (7.4-10.4); MONOCYTES # (AUTO) 0.2 X10'3 (0-0.9); NEUTROPHILS # (AUTO) 22.9 X10'3 (1.8-7.7); PLATELET COUNT 340 X10'3 (140-440); RED BLOOD COUNT 2.68 X10'6 (4.20-5.60); RED CELL DISTRIBUTION WIDTH 19.6 % (11.5-14.5); WHITE BLOOD COUNT 24.1 X10'3 (4.5-11.0)
[2018-02-04 10:35] LABS: ALBUMIN 2.2 G/DL (3.4-5.0); ANION GAP 16 (8-16); BLOOD UREA NITROGEN 98 MG/DL (7-18); BUN/CREATININE RATIO 24.3 (6.6-38.0); CALCIUM 9.1 MG/DL (8.5-10.1); CHLORIDE 103 MMOL/L (99-107); CREATININE 4.03 MG/DL (0.40-0.90); GLUCOSE 165 MG/DL (70-104); POTASSIUM 5.6 MMOL/L (3.5-5.1); SODIUM 139 MMOL/L (135-145); TOTAL CARBON DIOXIDE 19.8 MMOL/L (24-32); eGFR 11 ML/MIN
[2018-02-04 11:04] LABS: NUCLEATED RED BLOOD CELLS 2 /100WBC (0-0); TOTAL CELLS COUNTED 100
[2018-02-04 11:05] LABS: ANISOCYTOSIS 2+; PLATELET ESTIMATE NORMAL; POLYCHROMASIA FEW
[2018-02-04] MEDS: FENTANYL-0.9 % NACL/PF 100 ML IV PRN ×2 (11:36→17:37)
[2018-02-04] MEDS: sodium bicarbonate (8.4%) inj. 150 MEQ in dextrose 5%-water 1,000 ML IV SCH ×2 (11:43→21:45)
[2018-02-04] MEDS: midazolam 100mg in NS 100ml 100 ML IV PRN (11:43)
[2018-02-04] MEDS: NORepinephrine 8mg/ 250ml NS 250 ML IV SCH ×2 (13:16→15:02)
[2018-02-04] MEDS ORDERED: sodium chloride 0.9% 10ml vial - diluent IJ ONE (14:00)
[2018-02-04] MEDS ORDERED: epiNEPHrine 0.1mg/ml 10ml syringe ONE (14:00)
[2018-02-04] MEDS ORDERED: ipratropium/albuterol 3ml nebule ONE (15:03)
[2018-02-04 16:51] LABS: OXYGEN SATURATION (MIXED VEN) 66.5 % (60-80); PO2 MIXED VENOUS (TEMP COR) 34.9 mmHg (35-46)
[2018-02-04 16:51] LABS: ABG BASE EXCESS -6.9 mmol/L (-2.0-3.0); ABG HCO3 20.1 mmol/L (22.0-26.0); ABG PCO2 (T) 47.6 mmHg (32.0-45.0); ABG PH (T) 7.243 (7.350-7.450); ABG PO2 (T) 108.4 mmHg (83-108); FCOHb 1.2 % (0.5-1.5); FMetHb 0.3 % (0.3-1.12); FO2Hb 96.5 % (94-100); MINUTE VOLUME 10 L/min; PEEP 5 cm H2O; RESPIRATORY RATE (OBSERVED) 16 b/min; TOTAL HEMOGLOBIN 8.8 G/dl (12.0-16.0)
[2018-02-04] MEDS ORDERED: niCARDipine/sod cl 20mg/200ml 200 ML IV SCH (17:15)
[2018-02-04] MEDS ORDERED: niCARDipine-NS 40mg/200ml IVPB 200 ML IV SCH (17:15)
[2018-02-04 17:24] LABS: ALANINE AMINOTRANSFERASE 61 U/L (12-78); ALBUMIN 2.1 G/DL (3.4-5.0); ALBUMIN/GLOBULIN RATIO 0.5 (1.1-1.5); ALKALINE PHOSPHATASE 155 IU/L (46-116); ANION GAP 11 (8-16); ASPARTATE AMINO TRANSFERASE 108 U/L (10-37); BILIRUBIN,TOTAL 0.7 MG/DL (0.1-1.0); BLOOD UREA NITROGEN 101 MG/DL (7-18); BUN/CREATININE RATIO 25.2 (6.6-38.0); CHLORIDE 103 MMOL/L (99-107); CREATININE 4.01 MG/DL (0.40-0.90); GLUCOSE 148 MG/DL (70-104); POTASSIUM 5.5 MMOL/L (3.5-5.1); SODIUM 137 MMOL/L (135-145); TOTAL CARBON DIOXIDE 22.7 MMOL/L (24-32); TOTAL PROTEIN 6.2 G/DL (6.4-8.2); eGFR 11 ML/MIN
[2018-02-04] MEDS ORDERED: diltiazem 5mg/ml 5ml inj. IV ONE (17:35)
[2018-02-04] MEDS: ipratropium/albuterol 3ml nebule NEB SCH ×2 (19:11→23:47)
[2018-02-04] MEDS ORDERED: levoFLOXACIN-Levaquin 250mg/D5 100 ML IV SCH (19:17)
[2018-02-04 19:55] LABS: BASOPHILS % (AUTO) 0 % (0-1); EOSINOPHILS % (AUTO) 0.1 % (0-6); HEMATOCRIT 25.3 % (35.0-45.0); LYMPHOCYTES # (AUTO) 0.5 X10'3 (1.1-4.8); LYMPHOCYTES % (AUTO) 4.1 % (21-51); MEAN CORPUSCULAR HGB CONC 31.5 % (33.0-36.5); MEAN CORPUSCULAR VOLUME 88.8 FL (78-98); MEAN PLATELET VOLUME 8.9 FL (7.4-10.4); MONOCYTES # (AUTO) 0.3 X10'3 (0-0.9); MONOCYTES % (AUTO) 2.4 % (2-12); NEUTROPHILS # (AUTO) 12.5 X10'3 (1.8-7.7); NEUTROPHILS % (AUTO) 93.4 % (42-75); PLATELET COUNT 325 X10'3 (140-440); RED BLOOD COUNT 2.85 X10'6 (4.20-5.60); RED CELL DISTRIBUTION WIDTH 19.5 % (11.5-14.5); WHITE BLOOD COUNT 13.4 X10'3 (4.5-11.0)
[2018-02-04] MEDS: diltiazem-NS 100mg/100ml 100 ML IV SCH (20:00)
[2018-02-04 20:12] LABS: LARGE PLATELETS FEW; PLATELET ESTIMATE NORMAL
[2018-02-04] MEDS: ROPINIRole 1mg tablet PO SCH (20:26)
[2018-02-04] MEDS: traZODone 150mg tablet PO SCH (20:26)
[2018-02-04 21:07] LABS: INR 1.4 INR; PROTHROMBIN TIME 13.5 SECONDS (9.0-12.0)
[2018-02-04] MEDS ORDERED: albumin (Human) 5% 250ml 250 ML IV ONE ×2 (21:25→23:00)
[2018-02-04] MEDS ORDERED: gentamicin 40 MG/1 ML inj ONE (22:19)
[2018-02-04] MEDS ORDERED: clindamycin phosphate 150mg/ml inj. ONE (22:19)
[2018-02-04] MEDS ORDERED: NORepinephrine 1 mg/ml inj IV ONE (22:31)
[2018-02-04] MEDS ORDERED: rocuronium 10mg/ml inj IV ONE ×2 (22:55→23:00)
[2018-02-05] VITALS (27 sets, daily range): BP systolic 94–130; BP diastolic 49–92
[2018-02-05] MEDS: metroNIDAZOLE-Flagyl 500mg/NS 100 ML IV SCH ×3 (00:16→15:29)
[2018-02-05] MEDS: FENTANYL-0.9 % NACL/PF 100 ML IV PRN ×3 (00:17→23:50)
[2018-02-05] MEDS: midazolam 100mg in NS 100ml 100 ML IV PRN ×2 (00:17→20:25)
[2018-02-05] MEDS: NORepinephrine 8mg/ 250ml NS 250 ML IV SCH ×3 (00:18→15:30)
[2018-02-05] MEDS: pantoprazole 40MG/NS 100ML BAG 100 ML IV SCH ×6 (01:00→22:59)
[2018-02-05 01:31] LABS: ABG BASE EXCESS -5.9 mmol/L (-2.0-3.0); ABG HCO3 21.3 mmol/L (22.0-26.0); ABG OXYGEN SATURATION 90.9 % (95-98); ABG PCO2 (T) 51.1 mmHg (32.0-45.0); ABG PH (T) 7.238 (7.350-7.450); FCOHb 0.9 % (0.5-1.5); FMetHb 0.3 % (0.3-1.12); FO2Hb 89.8 % (94-100); MINUTE VOLUME 10 L/min; PATIENT TEMPERATURE 37.2; PEEP 5 cm H2O; RESPIRATORY RATE 22 b/min; RESPIRATORY RATE (OBSERVED) 22 b/min; TOTAL HEMOGLOBIN 8.8 G/dl (12.0-16.0)
[2018-02-05 02:23] LABS: BASOPHILS % (AUTO) 0.1 % (0-1); EOSINOPHILS % (AUTO) 0.1 % (0-6); HEMATOCRIT 24.1 % (35.0-45.0); HEMOGLOBIN 7.7 g/dl (12.0-16.0); LYMPHOCYTES # (AUTO) 0.4 X10'3 (1.1-4.8); LYMPHOCYTES % (AUTO) 3.4 % (21-51); MEAN CORPUSCULAR HEMOGLOBIN 28.4 PG (27.0-31.0); MEAN CORPUSCULAR HGB CONC 31.7 % (33.0-36.5); MEAN CORPUSCULAR VOLUME 89.3 FL (78-98); MEAN PLATELET VOLUME 8.5 FL (7.4-10.4); MONOCYTES # (AUTO) 0.2 X10'3 (0-0.9); MONOCYTES % (AUTO) 1.4 % (2-12); NEUTROPHILS # (AUTO) 12.1 X10'3 (1.8-7.7); PLATELET COUNT 308 X10'3 (140-440); RED CELL DISTRIBUTION WIDTH 19.6 % (11.5-14.5); WHITE BLOOD COUNT 12.8 X10'3 (4.5-11.0)
[2018-02-05 02:37] LABS: ALANINE AMINOTRANSFERASE 51 U/L (12-78); ALBUMIN 2.4 G/DL (3.4-5.0); ALBUMIN/GLOBULIN RATIO 0.6 (1.1-1.5); ALKALINE PHOSPHATASE 132 IU/L (46-116); ANION GAP 13 (8-16); ASPARTATE AMINO TRANSFERASE 70 U/L (10-37); BILIRUBIN,TOTAL 0.7 MG/DL (0.1-1.0); BLOOD UREA NITROGEN 102 MG/DL (7-18); BUN/CREATININE RATIO 24.8 (6.6-38.0); CALCIUM 8.9 MG/DL (8.5-10.1); CHLORIDE 104 MMOL/L (99-107); CREATININE 4.12 MG/DL (0.40-0.90); GLUCOSE 147 MG/DL (70-104); POTASSIUM 4.8 MMOL/L (3.5-5.1); SODIUM 138 MMOL/L (135-145); TOTAL PROTEIN 6.1 G/DL (6.4-8.2); eGFR 11 ML/MIN
[2018-02-05 03:00] LABS: MAGNESIUM 2.2 MG/DL (1.5-2.4); PHOSPHORUS 5.9 MG/DL (2.3-4.5)
[2018-02-05] MEDS: ipratropium/albuterol 3ml nebule NEB SCH ×6 (03:14→23:00)
[2018-02-05 03:15] LABS: ABG BASE EXCESS -5.7 mmol/L (-2.0-3.0); ABG HCO3 20.3 mmol/L (22.0-26.0); ABG OXYGEN SATURATION 92.3 % (95-98); ABG PCO2 (T) 42.5 mmHg (32.0-45.0); ABG PH (T) 7.299 (7.350-7.450); ABG PO2 (T) 67.5 mmHg (83-108); FCOHb 1.1 % (0.5-1.5); FMetHb 0.3 % (0.3-1.12); MINUTE VOLUME 12 L/min; PATIENT TEMPERATURE 37.1; PEEP 5 cm H2O; RESPIRATORY RATE 24 b/min; RESPIRATORY RATE (OBSERVED) 24 b/min; TOTAL HEMOGLOBIN 8.5 G/dl (12.0-16.0)
[2018-02-05 03:20] LABS: INR 1.4 INR; PARTIAL THROMBOPLASTIN TIME 26 SECONDS (22-32); PROTHROMBIN TIME 13.8 SECONDS (9.0-12.0)
[2018-02-05 03:44] LABS: D-DIMER 10.43 MG/L FEU (0-0.50)
[2018-02-05 04:44] LABS: ANISOCYTOSIS 2+; NUCLEATED RED BLOOD CELLS 2 /100WBC (0-0); PLATELET ESTIMATE NORMAL; TOTAL CELLS COUNTED 100
[2018-02-05 04:45] LABS: HYPOCHROMASIA 1+; POLYCHROMASIA FEW; TARGET CELLS FEW
[2018-02-05] MEDS: methadone 10mg tablet PO SCH ×2 (06:00→10:55)
[2018-02-05] MEDS: levoTHYROXINE 100mcg tablet PO SCH (07:20)
[2018-02-05] MEDS: folic acid 1mg tablet PO SCH (07:20)
[2018-02-05] MEDS: gabapentin 400mg capsule PO SCH (07:20)
[2018-02-05] MEDS: hydrOXYzine 25 MG tablet PO SCH ×2 (07:24→13:00)
[2018-02-05] MEDS: budesonide 0.5mg/2ml UD nebule IH SCH ×2 (07:36→19:45)
[2018-02-05] MEDS: levoFLOXACIN-Levaquin 250mg/D5 100 ML IV SCH (08:35)
[2018-02-05] MEDS: sodium bicarbonate (8.4%) inj. 150 MEQ in dextrose 5%-water 1,000 ML IV SCH ×2 (09:15→15:29)
[2018-02-05] MEDS: diltiazem-NS 100mg/100ml 100 ML IV SCH ×2 (09:42→16:24)
[2018-02-05] MEDS: hydrocortisone sod succ/PF 100mg/2ml inj. IV SCH ×2 (14:00→20:26)
[2018-02-05] MEDS: mineral oil/petrolatum ophthal oint EACHEYE SCH ×2 (14:00→20:27)
[2018-02-05 16:30] LABS: TOTAL VOLUME,URINE 7.5 ML
[2018-02-05] MEDS: ROPINIRole 1mg tablet PO SCH (21:00)
[2018-02-05] MEDS: traZODone 150mg tablet PO SCH (21:00)
[2018-02-06] VITALS (14 sets, daily range): BP systolic 89–131; BP diastolic 46–67
[2018-02-06] MEDS: metroNIDAZOLE-Flagyl 500mg/NS 100 ML IV SCH ×2 (00:26→08:10)
[2018-02-06] MEDS: NORepinephrine 8mg/ 250ml NS 250 ML IV SCH (02:16)
[2018-02-06] MEDS: hydrocortisone sod succ/PF 100mg/2ml inj. IV SCH ×3 (02:16→14:00)
[2018-02-06] MEDS: mineral oil/petrolatum ophthal oint EACHEYE SCH ×3 (02:19→14:00)
[2018-02-06 02:56] LABS: BASOPHILS % (AUTO) 0.2 % (0-1); EOSINOPHILS % (AUTO) 0 % (0-6); HEMATOCRIT 26.7 % (35.0-45.0); HEMOGLOBIN 8.6 g/dl (12.0-16.0); LYMPHOCYTES # (AUTO) 0.6 X10'3 (1.1-4.8); LYMPHOCYTES % (AUTO) 2.6 % (21-51); MEAN CORPUSCULAR HEMOGLOBIN 28.1 PG (27.0-31.0); MEAN CORPUSCULAR HGB CONC 32.1 % (33.0-36.5); MEAN CORPUSCULAR VOLUME 87.5 FL (78-98); MONOCYTES # (AUTO) 0.4 X10'3 (0-0.9); MONOCYTES % (AUTO) 1.8 % (2-12); NEUTROPHILS # (AUTO) 22.8 X10'3 (1.8-7.7); NEUTROPHILS % (AUTO) 95.4 % (42-75); PLATELET COUNT 283 X10'3 (140-440); RED BLOOD COUNT 3.05 X10'6 (4.20-5.60); RED CELL DISTRIBUTION WIDTH 19.9 % (11.5-14.5)
[2018-02-06 03:14] LABS: ALANINE AMINOTRANSFERASE 50 U/L (12-78); ALBUMIN/GLOBULIN RATIO 0.5 (1.1-1.5); ALKALINE PHOSPHATASE 124 IU/L (46-116); ANION GAP 12 (8-16); ASPARTATE AMINO TRANSFERASE 60 U/L (10-37); BILIRUBIN,TOTAL 0.6 MG/DL (0.1-1.0); BLOOD UREA NITROGEN 104 MG/DL (7-18); CALCIUM 8.8 MG/DL (8.5-10.1); CHLORIDE 103 MMOL/L (99-107); CREATININE 4.53 MG/DL (0.40-0.90); GLUCOSE 162 MG/DL (70-104); POTASSIUM 4.8 MMOL/L (3.5-5.1); SODIUM 139 MMOL/L (135-145); TOTAL CARBON DIOXIDE 24.5 MMOL/L (24-32); TOTAL PROTEIN 5.9 G/DL (6.4-8.2); eGFR 10 ML/MIN
[2018-02-06] MEDS: ipratropium/albuterol 3ml nebule NEB SCH ×4 (03:21→14:27)
[2018-02-06 03:35] LABS: ANISOCYTOSIS 2+; NUCLEATED RED BLOOD CELLS 3 /100WBC (0-0); PLATELET ESTIMATE NORMAL; TOTAL CELLS COUNTED 100; TOXIC GRANULATION 1+
[2018-02-06 03:36] LABS: HYPOCHROMASIA 1+; POLYCHROMASIA FEW
[2018-02-06 04:06] LABS: ABG BASE EXCESS -5.3 mmol/L (-2.0-3.0); ABG HCO3 22.5 mmol/L (22.0-26.0); ABG OXYGEN SATURATION 87.9 % (95-98); ABG PCO2 (T) 56.4 mmHg (32.0-45.0); ABG PO2 (T) 62.1 mmHg (83-108); FCOHb 0.5 % (0.5-1.5); FMetHb 0.3 % (0.3-1.12); FO2Hb 87.2 % (94-100); MINUTE VOLUME 6 L/min; PATIENT TEMPERATURE 37.1; PEEP 5 cm H2O; RESPIRATORY RATE 24 b/min; RESPIRATORY RATE (OBSERVED) 26 b/min; TOTAL HEMOGLOBIN 9.5 G/dl (12.0-16.0)
[2018-02-06] MEDS: sodium bicarbonate (8.4%) inj. 150 MEQ in dextrose 5%-water 1,000 ML IV SCH (05:35)
[2018-02-06] MEDS: pantoprazole 40MG/NS 100ML BAG 100 ML IV SCH ×2 (06:33→11:00)
[2018-02-06] MEDS: diltiazem-NS 100mg/100ml 100 ML IV SCH (07:38)
[2018-02-06] MEDS: levoFLOXACIN-Levaquin 250mg/D5 100 ML IV SCH (07:43)
[2018-02-06] MEDS: gabapentin 400mg capsule PO SCH (07:44)
[2018-02-06] MEDS: levoTHYROXINE 100mcg tablet PO SCH (07:44)
[2018-02-06] MEDS: folic acid 1mg tablet PO SCH (07:44)
[2018-02-06] MEDS: budesonide 0.5mg/2ml UD nebule IH SCH (08:12)
[2018-02-06] MEDS ORDERED: amiodarone 150mg/dext, iso-os 100 ML IV ONE (11:15)
[2018-02-06] MEDS: amiodarone/D5 360MG/200ML BAG 200 ML IV SCH ×2 (12:00→14:15)
[2018-02-06] MEDS: midazolam 100mg in NS 100ml 100 ML IV PRN (12:56)
[2018-02-06] MEDS ORDERED: morphine 10mg/ml inj. IV PRN (14:05)
[2018-02-06] MEDS ORDERED: LORazepam 2 mg/ml vial IV PRN (14:05)
[2018-02-07] MEDS ORDERED: methylnaltrexone br 12mg/0.6ml inj***SubQ only SQ SCH (08:00)
[2018-02-07] MEDS ORDERED: pantoprazole 40 MG vial IV SCH (08:00)
== END 2018-02-06 14:34 | disposition expired | DRG 853 ==
LOC: ER 13:00 → ED HOLD 16:13 → SUR 3N 18:56 → CICU 2S 02-04 09:09
PROVIDERS: ADMIT Internal Medicine; ATTEND Internal Medicine Critical Care Medicine
PROC: 30233N1 Transfusion of Nonautologous Red Blood Cells into Peripheral Vein, Percutaneous Approach (ICD-10-PCS; principal; 2018-02-03)
PROC: CF141ZZ Planar Nuclear Medicine Imaging of Gallbladder using Technetium 99m (Tc-99m) (ICD-10-PCS; 2018-02-03)
PROC: 0DJ08ZZ Inspection of Upper Intestinal Tract, Via Natural or Artificial Opening Endoscopic (ICD-10-PCS; 2018-02-03)
PROC: 0F9400Z Drainage of Gallbladder with Drainage Device, Open Approach (ICD-10-PCS; 2018-02-04)
PROC: 0BH17EZ Insertion of Endotracheal Airway into Trachea, Via Natural or Artificial Opening (ICD-10-PCS; 2018-02-04)
PROC: 5A1945Z Respiratory Ventilation, 24-96 Consecutive Hours (ICD-10-PCS; 2018-02-04)
PROC: 5A12012 Performance of Cardiac Output, Single, Manual (ICD-10-PCS; 2018-02-04)
PROC: 02HV33Z Insertion of Infusion Device into Superior Vena Cava, Percutaneous Approach (ICD-10-PCS; 2018-02-04)
PROC: B548ZZA Ultrasonography of Superior Vena Cava, Guidance (ICD-10-PCS; 2018-02-04)
PROC: 04HY32Z Insertion of Monitoring Device into Lower Artery, Percutaneous Approach (ICD-10-PCS; 2018-02-04)
PROC: 4A133B1 Monitoring of Arterial Pressure, Peripheral, Percutaneous Approach (ICD-10-PCS; 2018-02-04)
PROC: 4A133J1 Monitoring of Arterial Pulse, Peripheral, Percutaneous Approach (ICD-10-PCS; 2018-02-04)
PROC: 30233N1 Transfusion of Nonautologous Red Blood Cells into Peripheral Vein, Percutaneous Approach (ICD-10-PCS; 2018-02-05)
DX: A41.9 Sepsis, unspecified organism (principal); J96.22 Acute and chronic respiratory failure with hypercapnia; Z68.45 Body mass index [BMI] 70 or greater, adult; G93.40 Encephalopathy, unspecified; N17.9 Acute kidney failure, unspecified; N18.5 Chronic kidney disease, stage 5; E66.01 Morbid (severe) obesity due to excess calories; E03.9 Hypothyroidism, unspecified; F32.9 Major depressive disorder, single episode, unspecified; F41.9 Anxiety disorder, unspecified; J44.9 Chronic obstructive pulmonary disease, unspecified; M54.9 Dorsalgia, unspecified; R07.89 Other chest pain; R19.7 Diarrhea, unspecified; I12.9 Hypertensive chronic kidney disease with stage 1 through stage 4 chronic kidney disease, or unspecified chronic kidney disease; K80.20 Calculus of gallbladder without cholecystitis without obstruction; G89.4 Chronic pain syndrome; E87.5 Hyperkalemia; Z66 Do not resuscitate; Z51.5 Encounter for palliative care; D64.9 Anemia, unspecified; Z99.3 Dependence on wheelchair; Z88.0 Allergy status to penicillin; Z88.2 Allergy status to sulfonamides; Z88.6 Allergy status to analgesic agent; Z88.1 Allergy status to other antibiotic agents; Z88.8 Allergy status to other drugs, medicaments and biological substances; Z91.018 Allergy to other foods; Z79.890 Hormone replacement therapy; Z79.891 Long term (current) use of opiate analgesic; Z79.899 Other long term (current) drug therapy; Z82.3 Family history of stroke
CPT/HCPCS: 36415; 36600; 71045; 74018; 76700; 78226; 80048; 80053; 81001; 82140; 82272; 82570; 82803; 82810; 82948; 83605; 83690; 83735; 84100; 84145; 84156; 84439; 84443; 84540; 85018; 85025; 85379; 85610; 85730; 86885; 86900; 86901; 86920; 87040; 87070; 87075; 87088; 92950; 93005; 94002; 94003; 94640; 94760; 96374; 96375; 96376; 99152; 99285; A4620; A6251; A7000; A9537; C9113; G0378; J0171; J0282; J0744; J1170; J1580; J1720; J1940; J1956; J2250; J2270; J2405; J3010; J3490; J7030; J7626; P9016; P9045; Q0163; Q0177; Q9963